=== PATIENT | female | born 1950 | race Caucasian/White ===

== ENCOUNTER 2017-08-25 15:04 | Outpatient (CLI) | payer MEDICARE, OTHER ==
[2017-08-25 16:36] LABS: Hemoglobin 13.2 g/dL (12.0-16.0); Mean Corpuscular HGB CONC 32.7 g/dL (32.0-36.0); Mean Corpuscular Hemoglobin 28.8 pg (27.0-31.0); Mean Corpuscular Volume 88.1 fl (81.0-99.0); Platelet Count 312 thou/uL (130-400); RBC Distribution Width 13.1 % (11.5-14.5); White Blood Cell (WBC) Count 12.1 thou/uL (4.8-10.8)
[2017-08-25 16:43] LABS: PTT 29.3 SEC (22.9-36.1)
[2017-08-25 16:55] LABS: Anion Gap 16 mmol/L (10-20); BUN (Urea Nitrogen) 21 mg/dL (9.8-20.1); Calc. Creatinine Clearance 0 mL/min (70-130); Calcium 9.2 mg/dL (7.8-10.44); Carbon Dioxide 23 mmol/L (23-31); Chloride 108 mmol/L (98-107); Estimated GFR-MDRD 81; Glucose 80 mg/dL (80-115); Potassium 4.8 mmol/L (3.5-5.1); Sodium 142 mmol/L (136-145)
== END 2017-08-25 15:05 | disposition home or self-care (01) ==
LOC: LABBT 15:04
PROVIDERS: ATTEND Urology
DX: Z01.818 Encounter for other preprocedural examination (principal); N21.0 Calculus in bladder
CPT/HCPCS: 80048; 85027; 85610; 85730; 93005; 93010

== ENCOUNTER 2017-08-29 05:46 | Day surgery (SDC) | payer MEDICARE, OTHER ==
[2017-08-29] MEDS ORDERED: Levofloxacin 500 mg/D5W 100 ml Premix Bag ONE (06:13)
[2017-08-29] MEDS ORDERED: Midazolam HCl 2 mg/2 ml Vial ONE (07:09)
[2017-08-29] MEDS ORDERED: Fentanyl 100 MCG/2 ML VIAL ONE (07:09)
--- NOTE | 2017-08-29 09:16 | OP ---
DATE OF PROCEDURE: 08/29/2017 PREOPERATIVE DIAGNOSIS: Bladder stone. POSTOPERATIVE DIAGNOSIS: Bladder stone. PROCEDURE PERFORMED: Cystoscopy, laser lithotripsy, bladder stone with evacuation. SURGEON: Dr. Donta Heller ANESTHETIC: General. ESTIMATED BLOOD LOSS: Minimal. FINDINGS: There is a 4 x 5 cm bladder stone that was broken up with a large caliber Holmium laser fi judit and ellicked out. There were some mild areas of chronic inflammation. There was nothing suggest lia of bladder tumor or foreign body or fistula. There were 2 ureteral orifices. OPERATIVE TECHNIQUE: After obtaining written and verbal consent from the patient after receiving IV antibiotics, she was taken to the operating suite. She was placed in the supine position on the alena tment table. PlexiPulses were placed on her lower extremities and turned on. She was given a genera l anesthetic and oral intubation. She was placed in the dorsal lithotomy position. Because of some contractures, could not get her legs spread too far apart, but certainly could get them far enough fo r rigid cystoscopy. She was sterilely prepped and draped and a 22 Palestinian sheath was then well lubric ated, passed under direct vision through the female urethra into the urinary bladder with the aid of a 30 degree lens and a video camera and monitor. The bladder was filled and emptied a number of time s, being examined with the 30 and the 70 degree lens. We then brought in a large caliber Holmium las er fiber and used this to break up the stone. We tried to disintegrate as much as we could and as it got smaller and smaller pieces would fall off of and when we got done, it looked like there was most ly pieces, we began the process of the ellicking out fragments and reinspecting and lasering and aniceto cking out and did this about 3 times until we had all the stones out. There was no evidence of bladd er injury. A Valladares catheter was not left indwelling. The bladder was drained. Instruments were rem hilda. She was taken out of the dorsal lithotomy position, awakened and extubated and taken by kun power to recovery room.
[2017-08-29] MEDS ORDERED: Lidocaine 1% PF 5 ML VIAL ONE (12:15)
[2017-08-29] MEDS ORDERED: PROPOFOL 200 MG/20 ML VIAL ONE (12:15)
== END 2017-08-29 11:05 | disposition home or self-care (01) ==
LOC: SDC 05:46
PROVIDERS: ATTEND Urology
PROC: 0TCB8ZZ Extirpation of Matter from Bladder, Via Natural or Artificial Opening Endoscopic (ICD-10-PCS; principal; 2017-08-29)
DX: N21.0 Calculus in bladder (principal); N31.9 Neuromuscular dysfunction of bladder, unspecified; I10 Essential (primary) hypertension; E78.00 Pure hypercholesterolemia, unspecified
CPT/HCPCS: 82365; 88300; J1956; J2001; J2250; J2704; J3010

== ENCOUNTER 2019-02-04 11:31 | Inpatient (IN) | payer MEDICARE, OTHER ==
[2019-02-04 12:12] LABS: #Lymphocytes 1.3 thou/uL (1.20-3.40); #Monocytes 0.4 thou/uL (0.11-0.59); #Neutrophils 9.2 thou/uL (1.40-6.50); %Basophils 0.4 % (0.0-1.0); %Eosinophils 0.4 % (0.0-10.0); %Lymphocytes 11.9 % (21.0-51.0); %Neutrophils 83.4 % (42.0-75.0); Hemoglobin 13.3 g/dL (12.0-16.0); Mean Corpuscular HGB CONC 33.3 g/dL (32.0-36.0); Mean Corpuscular Hemoglobin 29.2 pg (27.0-31.0); Mean Corpuscular Volume 87.5 fL (78.0-98.0); Mean Platelet Volume 7.9 fL (7.4-10.4); Platelet Count 351 thou/uL (130-400); RBC Distribution Width 12.9 % (11.5-14.5); Red Blood Cell (RBC) Count 4.55 mill/uL (4.20-5.40)
[2019-02-04 12:18] LABS: PTT 29.3 SEC (22.9-36.1); Prothrombin Time 13.3 SEC (12.0-14.7)
--- NOTE | 2019-02-04 12:25 | RAD ---
Exam:2 views right tibia-fibula HISTORY: Pain. Trauma. COMPARISON: None FINDINGS: There appears be external casting material versus bandage/gauze. No fracture, cortical irre gularity or periosteal reaction. There is lateral soft tissue swelling IMPRESSION: No fracture. Lateral soft tissue swelling.
[2019-02-04 12:30] LABS: ALT (SGPT) 13 U/L (8-55); AST (SGOT) 19 U/L (5-34); Albumin 4.3 g/dL (3.4-4.8); Alkaline Phosphatase 143 U/L (40-110); Anion Gap 20 mmol/L (10-20); BUN (Urea Nitrogen) 20 mg/dL (9.8-20.1); Bilirubin, Total 0.6 mg/dL (0.2-1.2); Calc. Creatinine Clearance 0 mL/min (70-130); Calcium 9.4 mg/dL (7.8-10.44); Carbon Dioxide 25 mmol/L (23-31); Chloride 100 mmol/L (98-107); Estimated GFR-MDRD 71; Globulin 3.3 g/dL (2.4-3.5); Glucose 135 mg/dL (80-115); Potassium 3.9 mmol/L (3.5-5.1); Protein, Total 7.6 g/dL (6.0-8.3); Sodium 141 mmol/L (136-145)
[2019-02-04] MEDS ORDERED: Ondansetron PF 4 MG/2 ML Vial ONE (12:42)
[2019-02-04] MEDS ORDERED: Clindamycin/D5W 900 mg/50 ml Premix Bag ONE (12:42)
[2019-02-04] MEDS ORDERED: Morphine 4 MG/ML VIAL ONE (12:42)
--- NOTE | 2019-02-04 13:23 | ULT ---
ULTRASOUND DOPPLER DUPLEX VENOUS RIGHT LOWER EXTREMITY: DATE: 02/04/2019 HISTORY: 68-year-old female with right lower extremity pain TECHNIQUE: Grayscale, color-flow, and spectral analysis, of the right common femoral, profunda femoral, greater saphenous, femoral, popliteal, and posterior tibial, veins. FINDINGS: Limited study because of patient's limited mobility. Unable to move patient to visualize popliteal ve in. No DVT identified in the rest of the veins. IMPRESSION: 1. Limited study. 2. Right popliteal vein not visualized. 3. No deep venous thrombosis identified in the rest of the veins.
[2019-02-04] MEDS ORDERED: Sodium Chloride 0.9% 100 ML ONE (13:24)
[2019-02-04] MEDS ORDERED: Piperacillin/Tazobactam 4.5 GM VIAL ONE (13:24)
[2019-02-04 15:16] LABS: Lactic Acid 2.2 mmol/L (0.5-2.2)
--- NOTE | 2019-02-04 15:27 | HP ---
CHIEF COMPLAINT: Right foot swelling and erythema. HISTORY OF PRESENT ILLNESS: The patient is a 68-year-old female, who is wheelchair bound because of her multiple sclerosis since 1999. She was in the store and she pressed on her acceleration button and the wheelchair went into the refrigerator and she hit her right foot and since this episode she started having some redness in her right leg above the foot area and some swelling of the whole right lower extremity. This was several days ago and she decided to come to the emergency room for further evaluation. She is getting admitted for right leg cellulitis for IV antibiotic treatment. She denied any fever or chills. She rated the pain at 5 and now down to just residual. 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 PAST SURGICAL HISTORY: 1. Hysterectomy. 2. Adenoidectomy. 3. Foot surgery. MEDICATIONS: Please refer to the medication list. ALLERGIES: NONE. FAMILY HISTORY: Father of pancreatic cancer at unknown age and mother was 71 when she passed, I think, she had a brain tumor. SOCIAL HISTORY: She denies any alcohol intake, cigarette smoking, or illicit drug use. REVIEW OF SYSTEMS: All 14 systems were reviewed and negative except for those symptoms which are mentioned in HPI. PHYSICAL EXAMINATION: VITAL SIGNS: Blood pressure is 126/76, pulse is 99, respiratory rate is 19, temperature is 98.7. HEENT: Head is atraumatic and normocephalic. Eyes are PERRLA. Sclerae are nonicteric. Conjunctivae pinkish. Oral mucosa is moist. NECK: Supple. LUNGS: Clear. HEART: S1, S2 normal. No S3. No S4. ABDOMEN: Soft, nontender, nondistended. Bowel sounds are present. No organomegaly. EXTREMITIES: Right lower extremity just above the ankle area and some ankle area showed erythema. The right lower extremity is swollen in general and her left leg does not show any abnormalities. NEUROLOGIC: She is alert and oriented x4. Her right upper extremity is contracted and it involves her fingers, her wrist, her elbow and her shoulder. She is basically a wheelchair bound patient. Surrogate decision maker is her , Ottoniel Zimmerman. Code status is full. PRIMARY CARE PHYSICIAN: Zay Adams MD. LABORATORY DATA: Labs showed white count of 11.0, hemoglobin of 13.3, hematocrit 39.8, platelet count is 351,000, neutrophils 83.4. Normal INR, PT, and APTT. Normal electrolytes. Normal creatinine. Normal BUN. Glucose 135. Lactic acid 2.3. Alkaline phosphatase is 143. The rest of chemistry is within normal limits. Tibia and fibula x-ray negative for fracture. Vascular ultrasound of the lower extremity negative for DVT, although right popliteal vein was not visualized and the study was somewhat limited. IMPRESSION: 1. Right lower extremity cellulitis. 2. Multiple sclerosis. PLAN: Full admission to the medical floor. Condition, fair. Activity, bedrest. Diet regular. IV Hep-Lock, vancomycin 1 g q.12 hours and pharmacy to dose, Zosyn 3.375 g every 6 hours IV piggyback. Pain management with Tylenol. DVT prophylaxis with 30 mg of Lovenox q.12 subcutaneously. Continue some of her home medications, the most crucial ones which is metoprolol succinate 100 mg daily and amlodipine 5 mg daily. Job ID: [id number]
[2019-02-04] MEDS ORDERED: Dextrose 5% in Water 1,000 ML IV PRN (18:24)
[2019-02-04] MEDS ORDERED: Dextrose 50% Abboject 50 ML SYRINGE SLOW IVP PRN (18:24)
[2019-02-04] MEDS ORDERED: HumaLOG 300 UNITS/3 ML VIAL SC PRN (18:24)
[2019-02-04] MEDS: Famotidine 20 MG TAB PO SCH (20:52)
[2019-02-04] MEDS: Acetaminophen 325 MG TAB PO PRN (20:52)
[2019-02-04 21:05] VITALS: BMI 29.5
[2019-02-04] MEDS: Piperacillin/Tazobactam 3.375 GM in Sodium Chloride 0.9% 100 ML IVPB SCH (23:14)
[2019-02-05] MEDS: Piperacillin/Tazobactam 3.375 GM in Sodium Chloride 0.9% 100 ML IVPB SCH ×4 (05:11→23:29)
[2019-02-05 05:30] LABS: #Basophils 0.1 thou/uL (0.0-0.2); #Eosinphils 0.1 thou/uL (0.0-0.7); #Lymphocytes 2.1 thou/uL (1.20-3.40); #Monocytes 0.6 thou/uL (0.11-0.59); #Neutrophils 6.3 thou/uL (1.40-6.50); %Basophils 0.6 % (0.0-1.0); %Eosinophils 1.6 % (0.0-10.0); %Lymphocytes 22.9 % (21.0-51.0); %Monocytes 6.6 % (0.0-10.0); %Neutrophils 68.3 % (42.0-75.0); Hemoglobin 10.8 g/dL (12.0-16.0); Mean Corpuscular HGB CONC 32.9 g/dL (32.0-36.0); Mean Corpuscular Hemoglobin 28.9 pg (27.0-31.0); Mean Corpuscular Volume 87.7 fL (78.0-98.0); Platelet Count 326 thou/uL (130-400); RBC Distribution Width 12.8 % (11.5-14.5); Red Blood Cell (RBC) Count 3.76 mill/uL (4.20-5.40); White Blood Cell (WBC) Count 9.2 thou/uL (4.8-10.8)
[2019-02-05 05:51] LABS: Anion Gap 12 mmol/L (10-20); BUN (Urea Nitrogen) 21 mg/dL (9.8-20.1); Calc. Creatinine Clearance 76 mL/min (70-130); Calcium 8.3 mg/dL (7.8-10.44); Carbon Dioxide 27 mmol/L (23-31); Chloride 108 mmol/L (98-107); Estimated GFR-MDRD 70; Glucose 102 mg/dL (80-115); Potassium 3.3 mmol/L (3.5-5.1); Sodium 144 mmol/L (136-145)
[2019-02-05] MEDS ORDERED: Vancomycin HCl 1 GM in Premix Bag 1 BAG IVPB SCH (06:00)
[2019-02-05] MEDS: Famotidine 20 MG TAB PO SCH ×2 (08:14→20:23)
[2019-02-05] MEDS: Enoxaparin Sodium 40 MG/0.4 ML SYRINGE SC SCH (08:14)
[2019-02-05] MEDS ORDERED: FLU VACC TS2019-20(65YR UP)/PF 180 MCG/0.5 ML SYRINGE IM ONE (09:00)
[2019-02-05] MEDS ORDERED: Amlodipine 5 MG TAB PO SCH (09:00)
[2019-02-05] MEDS ORDERED: Prevnar 13-Val Conj/PF 0.5 ML SYRINGE IM ONE (09:00)
[2019-02-05] MEDS ORDERED: Potassium Chloride 20 MEQ TAB PO SCH (14:15)
[2019-02-05] MEDS: Gabapentin 300 MG CAP PO SCH ×2 (14:56→20:23)
[2019-02-05] MEDS: Baclofen 10 MG TAB PO SCH ×2 (14:56→20:23)
[2019-02-05] MEDS ORDERED: Vancomycin HCl 1.25 GM in Sodium Chloride 0.9% 250 ML 250 ML IVPB SCH (15:00)
--- NOTE | 2019-02-05 19:43 | PRG ---
DATE OF SERVICE: 02/05/2019 SUBJECTIVE: The patient was seen at bedside, admitted with right ankle area swelling secondary to trauma to her right ankle area while she was having motor wheelchair. Currently, the patient is feeling better; however, still has mild swelling and redness, but improving. The patient denies any fever, chest pain, nausea, vomiting, or diarrhea. OBJECTIVE: VITAL SIGNS: Temperature 98.3, pulse 61, respirations 18, oxygen saturation 98%, and blood pressure 119/73. GENERAL: The patient lying in bed comfortably, not in any distress. HEENT: Conjunctivae normal. Oral mucosa moist. NECK: Supple. No JVD. No lymphadenopathy. CHEST: Normal vesicular breathing. HEART: Sounds normal. ABDOMEN: Soft, benign, nontender. No visceromegaly. EXTREMITIES: Mild edema. Redness noted in right ankle area; however, pulses intact. LABORATORY DATA: BMP unremarkable except potassium 3.3 and blood glucose 220 to 119. CBC unremarkable except hemoglobin 10.8. IMPRESSION: 1. Right leg cellulitis, improving. The patient has baseline multiple sclerosis, unable to move her extremities. We will keep right leg elevated. Discussed with the nursing staff. I added one pillow below right leg. Swelling already improving. Continue currently antibiotics, leukocytosis improved. 2. History of multiple sclerosis. Continue supportive care, change of position, and follow up outpatient with neurologist. 3. Deep venous thrombosis/gastrointestinal prophylaxis. PLAN: Discussed with the patient and nursing staff. Job ID: [id number]
[2019-02-05] MEDS: Acetaminophen 325 MG TAB PO PRN (20:24)
[2019-02-05] MEDS ORDERED: Atorvastatin Calcium 10 MG TAB PO SCH (21:00)
[2019-02-06] MEDS: Piperacillin/Tazobactam 3.375 GM in Sodium Chloride 0.9% 100 ML IVPB SCH ×2 (05:18→11:35)
[2019-02-06 05:47] LABS: #Eosinphils 0.2 thou/uL (0.0-0.7); #Lymphocytes 2.4 thou/uL (1.20-3.40); #Monocytes 0.5 thou/uL (0.11-0.59); #Neutrophils 4.5 thou/uL (1.40-6.50); %Basophils 0.6 % (0.0-1.0); %Eosinophils 3.1 % (0.0-10.0); %Lymphocytes 30.9 % (21.0-51.0); %Monocytes 6.7 % (0.0-10.0); %Neutrophils 58.6 % (42.0-75.0); Hemoglobin 10.4 g/dL (12.0-16.0); Mean Corpuscular HGB CONC 31.9 g/dL (32.0-36.0); Mean Corpuscular Hemoglobin 28.2 pg (27.0-31.0); Mean Corpuscular Volume 88.2 fL (78.0-98.0); Mean Platelet Volume 7.9 fL (7.4-10.4); Platelet Count 311 thou/uL (130-400); RBC Distribution Width 12.9 % (11.5-14.5); Red Blood Cell (RBC) Count 3.69 mill/uL (4.20-5.40); White Blood Cell (WBC) Count 7.7 thou/uL (4.8-10.8)
[2019-02-06 06:12] LABS: Anion Gap 12 mmol/L (10-20); BUN (Urea Nitrogen) 16 mg/dL (9.8-20.1); Calc. Creatinine Clearance 85 mL/min (70-130); Calcium 8.4 mg/dL (7.8-10.44); Carbon Dioxide 26 mmol/L (23-31); Chloride 110 mmol/L (98-107); Estimated GFR-MDRD 80; Glucose 111 mg/dL (80-115); Potassium 3.6 mmol/L (3.5-5.1); Sodium 144 mmol/L (136-145)
[2019-02-06 07:14] VITALS: BP 131/75; TEMP 98.1
[2019-02-06] MEDS: Famotidine 20 MG TAB PO SCH (08:19)
[2019-02-06] MEDS: Baclofen 10 MG TAB PO SCH (08:19)
[2019-02-06] MEDS: Gabapentin 300 MG CAP PO SCH (08:20)
[2019-02-06] MEDS: Enoxaparin Sodium 40 MG/0.4 ML SYRINGE SC SCH (08:21)
[2019-02-06] MEDS ORDERED: Aspirin 81 mg Enteric Coated Tablet PO SCH (09:00)
[2019-02-06] MEDS ORDERED: Amlodipine 5 MG TAB PO SCH (09:00)
[2019-02-06] MEDS ORDERED: Folic Acid 1 MG TAB PO SCH (09:00)
--- NOTE | 2019-02-07 10:00 | DIS ---
DATE OF ADMISSION: 02/04/2019 DATE OF DISCHARGE: 02/06/2019 DISCHARGE DIAGNOSES: 1. Acute right lower leg cellulitis. 2. History of multiple sclerosis. 3. History of wheelchair-bound. 4. Mild anemia, most likely anemia of chronic disease. PHYSICAL EXAMINATION: VITAL SIGNS: Blood pressure 131/75, temperature 98.1, pulse 70, respirations 16, oxygen saturation 97%. GENERAL: The patient is lying in bed comfortably, not in distress. HEENT: Conjunctivae are normal. Oral mucosa moist. NECK: Supple. No JVD. No lymphadenopathy. CHEST: Normal vesicular breathing. HEART: Heart sounds normal. ABDOMEN: Soft, benign. No tenderness. No organomegaly. EXTREMITIES: Improving redness to right lower leg area. Swelling improved. LABORATORY DATA: CBC unremarkable on 02/06/2019 except hemoglobin 10.4, white blood cells 7.7, platelet 311. INR 1.0. BMP unremarkable. Blood culture negative for 48 hours. X-ray of tibia and fibula negative for acute fracture. DVT negative for acute findings. HOSPITAL SUMMARY: The patient Hiram Allred was admitted with redness and swelling of right lower leg area. The patient is a wheelchair bound. The patient was moving with a wheelchair when she lost control on her wheelchair and had her foot stuck with ricks and the patient presented with redness and swelling. X-ray was negative for acute fractures. The patient showed redness, admitted with cellulitis, treated with antibiotics. Currently, feeling better. Cultures are negative for 48 hours. White blood cells are normal. The patient has multiple sclerosis and advised to keep her bilateral leg elevation mostly the right affected leg elevation under 2 pillows. As the patient's symptoms are improving, we discharged her on p.o. antibiotics. Advised to follow up with PCP in a week. The patient advised to continue her home medication. Plan discussed with the patient and nursing staff. Being discharged in a stable condition. Job ID: [id number]
--- NOTE | 2019-02-08 08:11 | PQF ---
RENA SPENCE KYELDAVID HOPE [id number] CLINICAL DOCUMENTATION CLARIFICATION FORM: POST DISCHARGE Addendum to original discharge summary date: ____ Late entry note date: __ DATE: 02/08/2019 ATTN: DAVID CARPIO Please exercise your independent, professional judgment in responding to the clarification form. Clinical indicators are provided on the bottom of this form for your review Please check appropriate box(s) to clarify if the following diagnosis has been ruled in or ruled out: SEPSIS [ ] Ruled in diagnosis [ ] Continue to treat [ ] Resolved [ ] Ruled out diagnosis [ ] Cannot rule out diagnosis [ ] Other diagnosis [ ] Unable to determine For continuity of documentation, please document condition throughout progress notes and discharge summary. Thank You. CLINICAL INDICATORS - SIGNS / SYMPTOMS / LABS - Sepsis- ED record, 02/04, Boy Perez DO - Temp: 98.7, Pulse: 127, RR: 24- ED record, 02/04, Grismike Perez - WBC: 11.0-Laboratory, 02/04 RISK FACTORS - Acute right lower leg cellulitis- DS, 02/06, DAVID CARPIO - Hx of wheel chair-bound- DS, 02/06, DAVID CARPIO TREATMENTS - Zosyn.IV-MAR, 02/04 (This form is maintained as a part of the permanent medical record) 2014 [employer] All Rights Reserved Emil Haq [not provided] [not provided] TAURUS
== END 2019-02-06 13:45 | disposition home or self-care (01) | DRG 603 ==
LOC: ERS 11:31 → T4-B 18:11
PROVIDERS: ADMIT Internal Medicine; ATTEND Internal Medicine
DX: L03.115 Cellulitis of right lower limb (principal); G35 Multiple sclerosis; D63.8 Anemia in other chronic diseases classified elsewhere; E66.01 Morbid (severe) obesity due to excess calories; E11.9 Type 2 diabetes mellitus without complications; I10 Essential (primary) hypertension; E78.5 Hyperlipidemia, unspecified; Z99.3 Dependence on wheelchair; Z90.710 Acquired absence of both cervix and uterus
CPT/HCPCS: 36415; 36416; 80048; 80053; 83605; 85025; 85610; 85730; 87040; 90471; 90662; 93005; 96365; 96366; 96367; 96368; 96375; G0008; J1650; J2270; J2405; J2543; J3370; J3490; J7050

== ENCOUNTER 2020-01-18 18:33 | Inpatient (IN) | payer MEDICARE, OTHER ==
[~2020-01-18 18:33] MED LIST: Iopamidol 370 76% 100 ML VIAL ONE
[2020-01-18 19:07] LABS: #Basophils 0.1 thou/uL (0.0-0.2); #Eosinphils 0.2 thou/uL (0.0-0.7); #Lymphocytes 1.6 thou/uL (1.20-3.40); #Monocytes 0.6 thou/uL (0.11-0.59); %Basophils 0.6 % (0.0-1.0); %Eosinophils 1.6 % (0.0-10.0); %Lymphocytes 17.4 % (21.0-51.0); %Monocytes 6.1 % (0.0-10.0); %Neutrophils 74.3 % (42.0-75.0); Mean Corpuscular Hemoglobin 30.4 pg (27.0-31.0); Mean Corpuscular Volume 89.3 fL (78.0-98.0); Mean Platelet Volume 8.8 fL (7.4-10.4); Platelet Count 251 thou/uL (130-400); RBC Distribution Width 12.9 % (11.5-14.5); Red Blood Cell (RBC) Count 4.28 mill/uL (4.20-5.40); White Blood Cell (WBC) Count 9.4 thou/uL (4.8-10.8)
[2020-01-18 19:14] LABS: PTT 26.2 sec (22.9-36.1)
--- NOTE | 2020-01-18 19:15 | CT ---
CT Brain WO Con: 01/18/2020 6:45 PM CLINICAL HISTORY: Level 2 stroke alert; history of multiple sclerosis and altered mental status. IMAGING TECHNIQUE: Multiple CT images were obtained of the brain without IV contrast. COMPARISON: Prior CT of the brain dated July 20, 2016 and June 08, 2013 FINDINGS: BRAIN: Evidence of acute infarct: None. Evidence of chronic ischemic change:There is mild chronic small vessel white matter ischemic change v ersus white matter disease from the patient's reported multiple sclerosis. Evidence of intracranial hemorrhage: None. Evidence of midline shift: Third ventricle and septum pellucidum are midline. Ventricles: Normal. No hydrocephalus. SKULL: Intact. VISUALIZED PARANASAL SINUSES: There is mild mucosal thickening of the sphenoid sinus. Small mucous r etention cysts is seen in the inferior aspect the left maxillary sinus MASTOID AIR CELLS: Clear. EXTRACRANIAL SOFT TISSUES: Normal. IMPRESSION: 1. No acute intracranial abnormality. 2. Findings called to Dr. Bazan at 7:05 PM on January 18, 2020.
--- NOTE | 2020-01-18 19:17 | RAD ---
Chest AP view INDICATION: History of "passing out"; altered mental status COMPARISON: Prior exam dated August 03, 2013 FINDINGS: Lungs: The lungs are clear Cardiac silhouette: Stable mild cardiomegaly Pulmonary vasculature: Normal Pleural spaces: No pleural effusion or pneumothorax is demonstrated. Upper abdomen: No abnormality seen. Osseous structures: There is scattered degenerative and osteoarthritic change present. Mild thoracic scoliosis. There is diffuse osteopenia. Additional findings: None. IMPRESSION: Stable mild cardiomegaly
[2020-01-18 19:24] LABS: ALT (SGPT) 13 U/L (8-55); AST (SGOT) 16 U/L (5-34); Albumin 3.5 g/dL (3.4-4.8); Alkaline Phosphatase 105 U/L (40-110); Anion Gap 15 mmol/L (10-20); BUN (Urea Nitrogen) 24 mg/dL (9.8-20.1); Bilirubin, Total 0.2 mg/dL (0.2-1.2); Calc. Creatinine Clearance 0 mL/min (70-130); Calcium 8.4 mg/dL (7.8-10.44); Carbon Dioxide 24 mmol/L (23-31); Chloride 106 mmol/L (98-107); Estimated GFR-MDRD 59; Globulin 2.7 g/dL (2.4-3.5); Glucose 148 mg/dL (80-115); Lipase 44 U/L (8-78); Potassium 3.8 mmol/L (3.5-5.1); Protein, Total 6.2 g/dL (6.0-8.3); Sodium 141 mmol/L (136-145)
[2020-01-18 20:38] LABS: Bilirubin Negative (Negative); Blood, Urine Negative (Negative); Clarity Clear (Clear); Glucose, Urine (Dipstick) Normal (Negative); Ketone, Urine Negative (Negative); Leukocyte Negative Leu/uL (Negative); Nitrite Negative (Negative); Protein, Urine (Dipstick) 10 mg/dL (Neg-Trace); Specific Gravity, Urine 1.026 (1.002-1.036); pH, Urine 5.5 (5.0-9.0)
--- NOTE | 2020-01-18 20:53 | CT ---
CTA Angio Chest W WO Con 01/18/2020 8:32 PM Indication: 69-year-old female with syncope and elevated d-dimer Technique: Multiple CTA images were obtained of the thorax with IV contrast. 3-D rendering: MIP abhijit nstructed images were created and reviewed. Comparison: Prior CT the abdomen with and without contrast dated August 08, 2018 Findings: Pulmonary arteries: No central or segmental pulmonary embolus is evident. Heart and Aorta: There are coronary artery and thoracic aortic calcifications. There is a small trevon cardial effusion Mediastinum:Normal appearing. No enlarged lymph nodes. Lungs:The lungs are clear. Pleural space: Clear. Upper Abdomen: Right renal cyst. No additional abnormality Osseous Structures: There is diffuse osteopenia. There is scattered degenerative and osteoarthritic change present. There are bony hemangioma within the anterior T10 and T9 vertebral levels. Soft tissues:No abnormality. Other findings:None. Impression: No central or segmental pulmonary embolus.
--- NOTE | 2020-01-18 20:58 | CT ---
CT OF THE ABDOMEN AND PELVIS WITH IV CONTRAST INDICATION: Nausea vomiting and syncope COMPARISON: CT the abdomen with and without contrast dated August 08, 2018. FINDINGS: ABDOMEN: Lung bases: Clear Liver: No focal lesion. Gallbladder: Normal appearing. Pancreas: Normal. Adrenal glands: Normal. Spleen: Normal. Kidneys and ureters: Stable, peripherally calcified 7 cm superior pole right renal cyst. Left kidney appears within normal limits. Vasculature: There are moderate vascular calcifications seen involving the visualized vasculature. Lymph nodes:No lymphadenopathy. Free fluid in abdomen:No free fluid is evident. PELVIS: Small and large bowel: There are a few scattered colonic diverticula without evidence of active diver ticulitis. The small bowel is of normal caliber. Appendix:Not definitely seen Bladder: Partially decompressed Rectal and perirectal soft tissues:Mild wall thickening involving the mid to distal rectum is nonspec ific. Reproductive structures: Uterus appears to be surgically absent. Adnexa are not well seen Free fluid in pelvis: No free fluid is evident. Lymphadenopathy pelvis: No lymphadenopathy is evident. Osseous structures: No acute osseous abnormality. No destructive osteolytic or osteoblastic lesion i s identified. There is diffuse osteopenia. There is scattered degenerative and osteoarthritic change present. Soft tissues:There is some soft tissue stranding overlying the right hip which may reflect contusion versus scar. IMPRESSION: 1. Soft tissue reticulation of the right hip may reflect contusion versus scar. Recommend correlation clinically examination. 2. Mild wall thickening involving the mid to distal rectum is nonspecific. A mild proctitis cannot be entirely excluded. Recommend correlation with the clinical exam. 3. Peripherally calcified right renal cyst appears similar to the prior exam.
[2020-01-18] MEDS ORDERED: Piperacillin/Tazobactam 4.5 GM VIAL ONE (21:35)
[2020-01-19] MEDS ORDERED: Calcium Carbonate 500 MG ChewTAB PO PRN (00:01)
[2020-01-19] MEDS ORDERED: Acetaminophen 325 MG TAB PO PRN (00:01)
[2020-01-19] MEDS ORDERED: Acetaminophen 650 MG Suppository PR PRN (00:01)
--- NOTE | 2020-01-19 00:09 | PDOC.HHP ---
Hospitalist HPI - History of Present Illness syncope History of Present Illness: Case of an 69-year-old female with a pmhx of MS, hld and htn who comes to hospital due to syncope. Today patient had an episode of altered mental status and syncope after that she threw up and defecated on herself, this lasted a few seconds before she started to slowing arouse. of note patient was becoming hypotensive on way to hospital for which ems treated patient with ivfs and improved. patient denies any chest pain palpitation sob or diaphoresis. as per ems 40minutes after arrival patient was still altered, unpon arrival to the ED mentation had improved and was alert and ox3 Hospitalist ROS - Review of Systems All other systems reviewed; all pertinent +/- noted in HPI/Subj Hospitalist History - Past Surgical History Past Surgical History: reports: Appendectomy, Hysterectomy, Tonsillectomy - Family History Family History: reports: no pertinent history - Social History Smoking Status: Never smoker Alcohol: reports: None Drugs: reports: none - Exam General Appearance: NAD, awake alert Eye: PERRL, anicteric sclera ENT: normocephalic atraumatic, no oropharyngeal lesions Neck: supple, symmetric, no JVD, no thyromegaly Heart: RRR, no murmur, no gallops, no rubs Respiratory: CTAB, no wheezes, no rales, no ronchi Gastrointestinal: soft, non-tender, non-distended Extremities: no cyanosis, no clubbing, 1+ LE edema Skin: normal turgor, no lesions, no rashes Neurological: cranial nerve grossly intact Neurological - other findings: unable to move lower ext secondary to ms Musculoskeletal: generalized weakness, diffuse muscle atrophy Psychiatric: normal affect, normal behavior, A&O x 3 Hospitalist Results - Labs Result Diagrams: 01/18/20 18:51 01/18/20 18:51 Lab results: WBC 9.4 thou/uL (4.8-10.8) 01/18/20 18:51 Hgb 13.0 g/dL (12.0-16.0) 01/18/20 18:51 Hct 38.2 % (36.0-47.0) 01/18/20 18:51 MCV 89.3 fL (78.0-98.0) 01/18/20 18:51 Plt Count 251 thou/uL (130-400) 01/18/20 18:51 Neutrophils % 74.3 % (42.0-75.0) 01/18/20 18:51 Sodium 141 mmol/L (136-145) 01/18/20 18:51 Potassium 3.8 mmol/L (3.5-5.1) 01/18/20 18:51 Chloride 106 mmol/L (98-107) 01/18/20 18:51 Carbon Dioxide 24 mmol/L (23-31) 01/18/20 18:51 BUN 24 mg/dL (9.8-20.1) H 01/18/20 18:51 Creatinine 0.95 mg/dL (0.6-1.1) 01/18/20 18:51 Glucose 148 mg/dL (80-115) H 01/18/20 18:51 Lactic Acid 1.9 mmol/L (0.5-2.2) 01/18/20 18:51 Calcium 8.4 mg/dL (7.8-10.44) 01/18/20 18:51 Total Bilirubin 0.2 mg/dL (0.2-1.2) 01/18/20 18:51 AST 16 U/L (5-34) 01/18/20 18:51 ALT 13 U/L (8-55) 01/18/20 18:51 Alkaline Phosphatase 105 U/L (40-110) 01/18/20 18:51 Troponin I 0.013 ng/mL (< 0.028) 01/18/20 18:51 B-Natriuretic Peptide 46.4 pg/mL (0-100) 01/18/20 18:51 Serum Total Protein 6.2 g/dL (6.0-8.3) 01/18/20 18:51 Albumin 3.5 g/dL (3.4-4.8) 01/18/20 18:51 Lipase 44 U/L (8-78) 01/18/20 18:51 Urine Ketones Negative mg/dL (Negative) 01/18/20 20:15 Urine Blood Negative (Negative) 01/18/20 20:15 Urine Nitrite Negative (Negative) 01/18/20 20:15 Ur Leukocyte Esterase Negative Nakita/uL (Negative) 01/18/20 20:15 Hospitalist H&P A/P - Problem (1) Syncope Code(s): R55 - SYNCOPE AND COLLAPSE Status: Acute (2) Altered mental state Code(s): R41.82 - ALTERED MENTAL STATUS, UNSPECIFIED Status: Acute (3) HLD (hyperlipidemia) Code(s): E78.5 - HYPERLIPIDEMIA, UNSPECIFIED Status: Acute (4) HTN (hypertension) Code(s): I10 - ESSENTIAL (PRIMARY) HYPERTENSION Status: Acute (5) Multiple sclerosis Code(s): G35 - MULTIPLE SCLEROSIS Status: Acute - Plan Plan: Case of an 69y/o female wit the stated pmhx who presents with an episode of syncope syncope - no st ischemic changes or arrythmia on ekg - monitor w telemetry - 2d echo - pro bnp normal - normal hg - head ct negative - negative cta - normal blood sugar altered mental state - unclear etiology Ddx include MS exacerbation, seizures, pt does referes a similar episode in the past, hypotension secondary to over medication, arrythmia, over medication of anxiety medication, cva - f/u cmp, tsh, ammonia - neurologist consulted - r/o infection cta clean u/a clean - will get mri htn - due to hypotension, will hold current medication hld -continue statin
[2020-01-19 01:38] LABS: Troponin I Less than 0.010 ng/mL (< 0.028)
[2020-01-19 03:13] VITALS: BMI 27.0
[2020-01-19 03:24] LABS: Band 1 % (5-11); Hemoglobin 12.1 g/dL (12.0-16.0); Lymphocytes 20 % (21-51); MDiff Complete? YES; Mean Corpuscular Hemoglobin 29.6 pg (27.0-31.0); Mean Corpuscular Volume 89.9 fL (78.0-98.0); Mean Platelet Volume 8.8 fL (7.4-10.4); Monocytes 3 % (0-10); Neutrophil 76 % (42-75); Platelet Count 216 thou/uL (130-400); Platelet Morphology Comment Appears Adequate; RBC Distribution Width 12.9 % (11.5-14.5); Red Blood Cell (RBC) Count 4.08 mill/uL (4.20-5.40)
[2020-01-19 03:36] LABS: ALT (SGPT) 14 U/L (8-55); AST (SGOT) 18 U/L (5-34); Albumin 3.3 g/dL (3.4-4.8); Alkaline Phosphatase 94 U/L (40-110); Anion Gap 14 mmol/L (10-20); BUN (Urea Nitrogen) 22 mg/dL (9.8-20.1); Bilirubin, Total 0.2 mg/dL (0.2-1.2); Calc. Creatinine Clearance 61 mL/min (70-130); Calcium 8.7 mg/dL (7.8-10.44); Carbon Dioxide 25 mmol/L (23-31); Cardiac Risk 3.2 (Less than 4.5); Chloride 110 mmol/L (98-107); Cholesterol 141 mg/dl (< 200 Desired); Estimated GFR-MDRD 61; Globulin 2.3 g/dL (2.4-3.5); Glucose 169 mg/dL (80-115); HDL Cholesterol 44 mg/dL (>60 Neg Risk); LDL Cholesterol, Calculated 82 mg/dL; Potassium 3.7 mmol/L (3.5-5.1); Protein, Total 5.6 g/dL (6.0-8.3); Sodium 145 mmol/L (136-145); Triglycerides 75 mg/dL (Less than 150)
[2020-01-19 03:40] LABS: Troponin I Less than 0.010 ng/mL (< 0.028)
[2020-01-19] MEDS: Sodium Chloride 0.9% 1,000 ML IV SCH ×3 (04:13→20:25)
[2020-01-19] MEDS: Enoxaparin Sodium 40 MG/0.4 ML SYRINGE SC SCH (09:20)
--- NOTE | 2020-01-19 14:23 | CON ---
NEUROLOGY CONSULTATION DATE OF CONSULTATION: 01/19/2020 REASON FOR CONSULTATION: Syncope. HISTORY OF PRESENT ILLNESS: Ms. Daron Zimmerman is a 69-year-old female with medical history significant for multiple sclerosis, hyperlipidemia, hypertension, followed by Dr. Gomez in the [facility], presented to the hospital due to an episode of passing out. Per patient, yesterday she had an episode of altered mental status during which she passed out and defecated on herself. The episode lasted for few minutes and then she woke up. The EMS was called and at the time of initial presentation, she was found to be hypotensive and given intravenous fluid, which improved her condition. The patient denies any focal weakness, focal paresthesias, headache, chest pain, abdominal pain, recent illness, recent exposure with COVID, vertigo, loss of vision, blurred vision or double vision associated with the episode. She denies any history of prior episode. REVIEW OF SYSTEMS: All systems reviewed and were negative except the pertinent positives and negatives mentioned in the HPI. PAST MEDICAL HISTORY: Hypertension, hyperlipidemia, multiple sclerosis. PAST SURGICAL HISTORY: Appendectomy, hysterectomy, tonsillectomy. FAMILY HISTORY: No pertinent family history. SOCIAL HISTORY: The patient denies smoking, alcohol, illegal drug use. ALLERGIES: NKDA PHYSICAL EXAMINATION: 122/67 75 17 General Appearance: NAD, awake alert Eye: PERRL, anicteric sclera ENT: normocephalic atraumatic, no oropharyngeal lesions Neck: supple, symmetric, no JVD, no thyromegaly Heart: RRR, no murmur, no gallops, no rubs Respiratory: CTAB, no wheezes, no rales, no ronchi Gastrointestinal: soft, non-tender, non-distended Extremities: no cyanosis, no clubbing, 1+ LE edema Skin: normal turgor, no lesions, no rashes Neurological: : Mental status, the patient is alert and oriented to person, place, and time. Speech is clear. Muscle bulk is normal. Tone is decreased in the lower extremity secondary to MS, diffuse muscle atrophy and generalized weakness, lower extremities greater than upper extremities. Cranial nerves II through XII intact. Cerebellar, finger-nose testing intact. Gait deferred due to patient's safety reasons. DATA REVIEWED: I reviewed the labs which were significant for hyperglycemia of 148. CT scan of the brain did not reveal acute intracranial pathology. WBC 9.4 thou/uL (4.8-10.8) 01/18/20 18:51 Hgb 13.0 g/dL (12.0-16.0) 01/18/20 18:51 Hct 38.2 % (36.0-47.0) 01/18/20 18:51 MCV 89.3 fL (78.0-98.0) 01/18/20 18:51 Plt Count 251 thou/uL (130-400) 01/18/20 18:51 Neutrophils % 74.3 % (42.0-75.0) 01/18/20 18:51 Sodium 141 mmol/L (136-145) 01/18/20 18:51 Potassium 3.8 mmol/L (3.5-5.1) 01/18/20 18:51 Chloride 106 mmol/L (98-107) 01/18/20 18:51 Carbon Dioxide 24 mmol/L (23-31) 01/18/20 18:51 BUN 24 mg/dL (9.8-20.1) H 01/18/20 18:51 Creatinine 0.95 mg/dL (0.6-1.1) 01/18/20 18:51 Glucose 148 mg/dL (80-115) H 01/18/20 18:51 Lactic Acid 1.9 mmol/L (0.5-2.2) 01/18/20 18:51 Calcium 8.4 mg/dL (7.8-10.44) 01/18/20 18:51 Total Bilirubin 0.2 mg/dL (0.2-1.2) 01/18/20 18:51 AST 16 U/L (5-34) 01/18/20 18:51 ALT 13 U/L (8-55) 01/18/20 18:51 Alkaline Phosphatase 105 U/L (40-110) 01/18/20 18:51 Troponin I 0.013 ng/mL (< 0.028) 01/18/20 18:51 B-Natriuretic Peptide 46.4 pg/mL (0-100) 01/18/20 18:51 Serum Total Protein 6.2 g/dL (6.0-8.3) 01/18/20 18:51 Albumin 3.5 g/dL (3.4-4.8) 01/18/20 18:51 Lipase 44 U/L (8-78) 01/18/20 18:51 Urine Ketones Negative mg/dL (Negative) 01/18/20 20:15 Urine Blood Negative (Negative) 01/18/20 20:15 Urine Nitrite Negative (Negative) 01/18/20 20:15 Ur Leukocyte Esterase Negative Nakita/uL (Negative) 01/18/20 20:15 ASSESSMENT AND PLAN: (1) Syncope Code(s): R55 - SYNCOPE AND COLLAPSE Status: Acute (2) Altered mental state Code(s): R41.82 - ALTERED MENTAL STATUS, UNSPECIFIED Status: Acute (3) HLD (hyperlipidemia) Code(s): E78.5 - HYPERLIPIDEMIA, UNSPECIFIED Status: Acute (4) HTN (hypertension) Code(s): I10 - ESSENTIAL (PRIMARY) HYPERTENSION Status: Acute (5) Multiple sclerosis Code(s): G35 - MULTIPLE SCLEROSIS Status: Acute MsMohsen Zimmerman is a 69-year-old female with a medical history significant for multiple sclerosis, presented with an episode of syncope; however, seizure could not be completely ruled out, consider MRI of the brain with and without contrast to follow up on multiple sclerosis exacerbation. EEG to rule out underlying seizure activity. 2D echocardiogram and telemetry as part of syncope workup. Neuro checks every 4 hours. Continue home medications. Continue medical management per primary team, PT/OT/Speech. We will continue to follow. Thank you for the consult. Job ID: [id number] TAURUS
--- NOTE | 2020-01-19 14:43 | PDOC.EEG ---
Neurology EEG Report - Report Report: This EEG was performed using 24 channel [employer] video digital EEG machine with 24 disc electrodes. This was an extended 2-hour 4 minutes of inpatient video EEG recording. Digital analysis of the EEG was done for Miguel Angel and seizure detection which revealed no abnormalities. Background: The posterior background rhythm is 8.5-9 Hz the background rhythm attenuates with eye opening and enhances with eye closure. Photic stimulation: Bioccipital symmetric driving response is observed. Hyperventilation: Not performed Sleep: Drowsiness is observed EEG diagnosis: Normal awake and drowsy EEG.
[2020-01-19] MEDS ORDERED: Magnevist 469MG/ML 20 ML VIAL ONE (15:33)
--- NOTE | 2020-01-19 16:35 | MRI ---
MRI Brain W WO Con: 01/19/2020 1:35 PM CLINICAL HISTORY: History of multiple sclerosis; concern for acute exacerbation. TECHNIQUE: Multiplanar, multisequence images were obtained of the brain with and without IV contrast. 20 cc of MultiHance was utilized for the exam. COMPARISON: CT the brain without contrast dated January 18, 2020 FINDINGS: Extra axial spaces: Normal in size and morphology for the patient's age. Hemorrhage: None. Ventricular system: Normal in size and morphology for the patient's age. Basal cisterns: Normal. Cerebral parenchyma: There are foci of T2 hyperintensity seen within the periventricular white matter . The morphological appearance that is seen with inflammatory entities such as multiple sclerosis. No definite active demyelination is evident. No definite foci of abnormal enhancement is noted. There is a single punctate region of increased signal intensity on the diffusion-weighted images within the right splenium of the corpus callosum without definite confirmation of restricted diffusion likel y related to T2 shine through effect. No acute infarct is noted.. Midline shift: None. Cerebellum: Normal. Brainstem: There are areas of mild T2 hyperintensity within the paramedian lance which may be related to patient's multiple sclerosis or chronic small vessel white matter ischemic change. OTHER: Calvarium: Normal. Vascular system: Normal. Visualized Paranasal sinuses: Mild mucosal thickening is seen within the sphenoid sinus, left maxilla ry sinus and ethmoid air cells.. Visualized Orbits: The napaimute lenses have been replaced. Visualized upper cervical spine: Normal. Sella and skull base: Normal. IMPRESSION: 1. No definite acute intracranial abnormality demonstrated. 2. Foci of T2 hyperintensity within the periventricular white matter of both cerebral hemispheres con sistent with patient's history of multiple sclerosis. No active demyelination is evident. 3. Mild paranasal sinus disease.
[2020-01-19] MEDS: Atorvastatin Calcium 10 MG TAB PO SCH (20:25)
[2020-01-19] MEDS ORDERED: FLU VACC QS2020-21(65YR UP)/PF 240 MCG/0.7 ML SYRINGE IM ONE (21:00)
[2020-01-20] MEDS: Sodium Chloride 0.9% 1,000 ML IV SCH (09:11)
[2020-01-20] MEDS: Enoxaparin Sodium 40 MG/0.4 ML SYRINGE SC SCH (09:11)
--- NOTE | 2020-01-20 09:59 | PDOC.EVN ---
Event Note - Event Note Event Note: I was contacted by Dr. Jeison Mobley from [facility]. Patient stay reportedly meets inpatient criteria. I will change patient status to inpatient.
[2020-01-20] MEDS ORDERED: Bisacodyl 5 MG TAB PO PRN (10:34)
--- NOTE | 2020-01-20 12:15 | PDOC.NEUPN ---
- Subjective Encounter Date: 01/20/20 Subjective: Patient denies any new complaint since the last 24 hours - Objective Vital Signs & Weight: Vital Signs (12 hours) Temp Pulse Resp BP Pulse Ox 01/20/20 11:40 98.4 F 73 18 187/86 H 96 01/20/20 07:34 98.2 F 72 16 160/76 H 97 01/20/20 04:00 97.9 F 63 16 166/79 H 96 Weight Weight 143 lb I&O: 01/19/20 01/20/20 01/21/20 07:59 06:59 06:59 Intake Total Output Total Balance Result Diagrams: 01/19/20 03:01 01/19/20 03:01 Radiology Reviewed by me: Yes EKG Reviewed by me: Yes ROS - Review of Systems Constitutional: denies: fever, chills, sweats, weakness, malaise, other ENT: denies: ear pain, ear discharge, nose pain, nose discharge, nose congestion, mouth pain, mouth swelling, throat pain, throat swelling, other Respiratory: denies: cough, dry, shortness of breath, hemoptysis, SOB with exc ertion, pleuritic pain, sputum, wheezing, other All Systems: All other systems reviewed; all pertinent +/- noted in HPI/Subj - Medication Medications: Active Medications Generic Name Dose Route Start Last Admin Trade Name Freq PRN Reason Stop Dose Admin Atorvastatin Calcium 10 mg 01/19/20 21:00 01/19/20 20:25 Atorvastatin Calcium 10 Mg Tab PO 10 mg HS ANA MARIA Administration Enoxaparin Sodium 40 mg 01/19/20 09:00 01/20/20 09:11 Enoxaparin Sodium 40 Mg/0.4 Ml Syringe SC 40 mg 0900 ANA MARIA Administration Sodium Chloride 1,000 mls @ 70 mls/hr 01/19/20 00:15 01/20/20 09:11 Normal Saline 0.9% IV 1,000 mls .[id number] ANA MARIA Administration - Exam General Appearance: awake alert Eye: PERRL ENT: normocephalic atraumatic Neck: supple Respiratory: CTAB Cardiovascular: RRR Gastrointestinal: soft Extremities: no cyanosis Skin: normal turgor Neurological: CN's grossly intact, no focal deficits, no new deficit Musculoskeletal: normal tone, normal strength, no muscle wasting PSYCH: normal affect, normal behavior, A&O x 3, oriented to person, oriented to place, oriented to time Results - Labs Result Diagrams: 01/19/20 03:01 01/19/20 03:01 Lab results: WBC 12.0 thou/uL (4.8-10.8) H 01/19/20 03:01 Hgb 12.1 g/dL (12.0-16.0) 01/19/20 03:01 Hct 36.6 % (36.0-47.0) 01/19/20 03:01 MCV 89.9 fL (78.0-98.0) 01/19/20 03:01 Plt Count 216 thou/uL (130-400) 01/19/20 03:01 Neutrophils % 74.3 % (42.0-75.0) 01/18/20 18:51 Band Neuts % (Manual) 1 % (5-11) L 01/19/20 03:01 Sodium 145 mmol/L (136-145) 01/19/20 03:01 Potassium 3.7 mmol/L (3.5-5.1) 01/19/20 03:01 Chloride 110 mmol/L (98-107) H 01/19/20 03:01 Carbon Dioxide 25 mmol/L (23-31) 01/19/20 03:01 BUN 22 mg/dL (9.8-20.1) H 01/19/20 03:01 Creatinine 0.92 mg/dL (0.6-1.1) 01/19/20 03:01 Glucose 169 mg/dL (80-115) H 01/19/20 03:01 Lactic Acid 1.9 mmol/L (0.5-2.2) 01/18/20 18:51 Calcium 8.7 mg/dL (7.8-10.44) 01/19/20 03:01 Total Bilirubin 0.2 mg/dL (0.2-1.2) 01/19/20 03:01 AST 18 U/L (5-34) 01/19/20 03:01 ALT 14 U/L (8-55) 01/19/20 03:01 Alkaline Phosphatase 94 U/L (40-110) 01/19/20 03:01 Ammonia 24 umol/L (18-72) 01/19/20 03:01 Troponin I Less than 0.010 ng/mL (< 0.028) 01/19/20 03:01 B-Natriuretic Peptide 46.4 pg/mL (0-100) 01/18/20 18:51 Serum Total Protein 5.6 g/dL (6.0-8.3) L 01/19/20 03:01 Albumin 3.3 g/dL (3.4-4.8) L 01/19/20 03:01 Lipase 44 U/L (8-78) 01/18/20 18:51 Urine Ketones Negative mg/dL (Negative) 01/18/20 20:15 Urine Blood Negative (Negative) 01/18/20 20:15 Urine Nitrite Negative (Negative) 01/18/20 20:15 Ur Leukocyte Esterase Negative Nakita/uL (Negative) 01/18/20 20:15 - Radiology Interpretation MRI - head Status: image reviewed by me, report reviewed by me Additional Comment: MRI the brain did not reveal any acute intracranial pathology. No active demyelinating multiple sclerosis lesions seen on the MRI. PN A/P (1) Altered mental state Code(s): R41.82 - ALTERED MENTAL STATUS, UNSPECIFIED Status: Acute (2) HLD (hyperlipidemia) Code(s): E78.5 - HYPERLIPIDEMIA, UNSPECIFIED Status: Acute (3) HTN (hypertension) Code(s): I10 - ESSENTIAL (PRIMARY) HYPERTENSION Status: Acute (4) Multiple sclerosis Code(s): G35 - MULTIPLE SCLEROSIS Status: Acute (5) Syncope Code(s): R55 - SYNCOPE AND COLLAPSE Status: Acute - Plan Daily Plan: PT/OT, speech therapy, out of bed/ambulate Ms. Zimmerman is a 69-year-old female with past medical history significant for multiple sclerosis scented for altered mental status and a passing out spell. Differential diagnoses include TIA versus seizure versus syncope. MRI of the brain reviewed which did not reveal any acute intracranial pathology, stroke or active demyelinating lesions. EEG reviewed which was negative for seizure activity 2D echo showed ejection fraction 55 to 60%. No thrombus or PFO. Telemetry Continue syncope work-up cardiology. Neurochecks every 4 hours. Continue home medications. PT/OT/speech Continue medical management per primary team. Plan discussed in detail with the patient.
[2020-01-20] MEDS ORDERED: Amlodipine 5 MG TAB PO SCH (15:45)
--- NOTE | 2020-01-20 16:10 | PDOC.HOSPP ---
- Subjective Encounter Date: 01/20/20 Encounter Time: 08:30 Subjective: Patient seen for follow-up regarding syncope. She denies any chest pain or shortness of breath. - Objective Vital Signs & Weight: Vital Signs (12 hours) Temp Pulse Resp BP Pulse Ox 01/20/20 13:49 163/74 H 01/20/20 13:23 175/67 H 01/20/20 11:40 98.4 F 73 18 187/86 H 96 01/20/20 07:34 98.2 F 72 16 160/76 H 97 Weight Weight 143 lb I&O: 01/19/20 01/20/20 01/21/20 07:59 06:59 06:59 Intake Total Output Total Balance Result Diagrams: 01/19/20 03:01 01/19/20 03:01 Additional Labs: I reviewed patient's labs and MAR EKG Reviewed by me: Yes (Telemetry: NSR) Hospitalist ROS - Review of Systems Cardiovascular: denies: chest pain, palpitations, orthopnea, paroxysmal noc. dyspnea, edema, light headedness Gastrointestinal: denies: nausea, vomiting, abdominal pain, diarrhea, constipation, melena, hematochezia - Medication Medications: Active Medications Generic Name Dose Route Start Last Admin Trade Name Freq PRN Reason Stop Dose Admin Atorvastatin Calcium 10 mg 01/19/20 21:00 01/19/20 20:25 Atorvastatin Calcium 10 Mg Tab PO 10 mg HS ANA MARIA Administration Bisacodyl 10 mg 01/20/20 10:34 01/20/20 12:52 Bisacodyl 5 Mg Tab PO 10 mg DAILYPRN PRN Administration Constipation Enoxaparin Sodium 40 mg 01/19/20 09:00 01/20/20 09:11 Enoxaparin Sodium 40 Mg/0.4 Ml Syringe SC 40 mg 0900 ANA MARIA Administration Sodium Chloride 1,000 mls @ 70 mls/hr 01/19/20 00:15 01/20/20 09:11 Normal Saline 0.9% IV 1,000 mls .[id number] ANA MARIA Administration - Exam General Appearance: awake alert Eye: anicteric sclera ENT: moist mucosa Neck: supple Heart: RRR Respiratory: CTAB Gastrointestinal: soft Extremities - other findings: Contractures Skin: no rashes Psychiatric: normal affect, normal behavior Hosp A/P - Plan -Assessment (1) Syncope Code(s): R55 - SYNCOPE AND COLLAPSE Status: Acute (2) HLD (hyperlipidemia) Code(s): E78.5 - HYPERLIPIDEMIA, UNSPECIFIED Status: Chronic (3) HTN (hypertension) Code(s): I10 - ESSENTIAL (PRIMARY) HYPERTENSION Status: Chronic (4) Multiple sclerosis Code(s): G35 - MULTIPLE SCLEROSIS Status: Chronic (5) acute metabolic encephalopathy Status: Resolved - Plan Neuro work-up negative so far. Continue to monitor on telemetry. Consult cardiology for opinion and help with management. Acute metabolic encephalopathy has resolved. Blood pressures have been high, resume antihypertensives. Continue statin.
[2020-01-20] MEDS ORDERED: Enalaprilat Dihydrate 1.25 MG/ML VIAL SLOW IVP PRN (18:52)
[2020-01-20] MEDS ORDERED: Dextrose 5% in Water 1,000 ML IV PRN (18:56)
[2020-01-20] MEDS ORDERED: Dextrose 50% Abboject 50 ML SYRINGE SLOW IVP PRN (18:56)
[2020-01-20] MEDS ORDERED: HumaLOG 300 UNITS/3 ML VIAL SC PRN (18:56)
[2020-01-20] MEDS: Citalopram 20 MG TAB PO SCH (20:57)
[2020-01-20] MEDS: Atorvastatin Calcium 10 MG TAB PO SCH (20:57)
[2020-01-21 00:12] LABS: SARS-CoV-2 MS2 Positive; SARS-CoV-2 N Gene Negative; SARS-CoV-2 S Gene Negative; SARS-CoV-2 by NAA Not Detected (Not Detected); SARS-CoV-2 orf1ab Negative
[2020-01-21 04:28] LABS: #Basophils 0.1 thou/uL (0.0-0.2); #Eosinphils 0.2 thou/uL (0.0-0.7); #Lymphocytes 2.1 thou/uL (1.20-3.40); #Monocytes 0.6 thou/uL (0.11-0.59); #Neutrophils 7.2 thou/uL (1.40-6.50); %Basophils 0.7 % (0.0-1.0); %Eosinophils 1.7 % (0.0-10.0); %Lymphocytes 21.2 % (21.0-51.0); %Monocytes 5.5 % (0.0-10.0); Hemoglobin 13.1 g/dL (12.0-16.0); Mean Corpuscular HGB CONC 33.5 g/dL (32.0-36.0); Mean Corpuscular Hemoglobin 29.7 pg (27.0-31.0); Mean Corpuscular Volume 88.5 fL (78.0-98.0); Mean Platelet Volume 8.7 fL (7.4-10.4); Platelet Count 238 thou/uL (130-400); RBC Distribution Width 12.7 % (11.5-14.5); Red Blood Cell (RBC) Count 4.42 mill/uL (4.20-5.40); White Blood Cell (WBC) Count 10.1 thou/uL (4.8-10.8)
[2020-01-21 04:45] LABS: Hemoglobin A1c 5.6 % (4.0-6.0)
[2020-01-21 04:56] LABS: Anion Gap 14 mmol/L (10-20); BUN (Urea Nitrogen) 9 mg/dL (9.8-20.1); Calc. Creatinine Clearance 87 mL/min (70-130); Calcium 8.9 mg/dL (7.8-10.44); Carbon Dioxide 26 mmol/L (23-31); Chloride 104 mmol/L (98-107); Estimated GFR-MDRD Greater than 90; Glucose 90 mg/dL (80-115); Potassium 3.6 mmol/L (3.5-5.1); Sodium 140 mmol/L (136-145)
[2020-01-21] MEDS ORDERED: Hydrochlorothiazide 25 MG TAB PO SCH (09:00)
[2020-01-21] MEDS ORDERED: Amlodipine 5 MG TAB PO SCH (09:00)
[2020-01-21] MEDS: Aspirin 81 mg Enteric Coated Tablet PO SCH (09:37)
[2020-01-21] MEDS: Baclofen 10 MG TAB PO SCH (09:37)
[2020-01-21] MEDS: Cholecalciferol 1,000 UNITS (25 MCG) TAB PO SCH (09:38)
[2020-01-21] MEDS: Gabapentin 300 MG CAP PO SCH (09:39)
[2020-01-21] MEDS: Cyanocobalamin (Vitamin B-12) 1,000 MCG TAB PO SCH (09:39)
[2020-01-21] MEDS: Fish Oil 1,000 MG CAP PO SCH (09:39)
[2020-01-21] MEDS: Enoxaparin Sodium 40 MG/0.4 ML SYRINGE SC SCH (09:39)
--- NOTE | 2020-01-21 16:17 | CON ---
DATE OF CONSULTATION: 01/21/2020 REASON FOR CONSULTATION: Episode of unresponsiveness. HISTORY OF PRESENT ILLNESS: Ms. Zimmerman is a very pleasant 69-year-old woman with long history of multiple sclerosis. She had an episode of unresponsiveness prompting admission on 01/18/2020. The patient had an episode of altered mental status, after which she passed out and defecated on herself. She lasted a few minutes and woke up. EMS was called and she was found to be hypotensive. She was given intravenous fluid and that improved her condition. Since she has been here, she has undergone neurologic evaluation and does not thought that is a primary neurologic event. REVIEW OF SYSTEMS: CONSTITUTIONAL: No significant weight gain or loss. VISION: No changes. HEARING: No changes. PULMONARY: No cough or wheezing. GASTROINTESTINAL: No nausea, vomiting, or diarrhea. PAST MEDICAL HISTORY: She has a long history of multiple sclerosis. She is mostly in bed with a power wheelchair. She is able to be somewhat mobile. She said to get from the chair to the bed or from the bed to the chair her essentially lift her and puts her in the chair. She is unable to walk. Past history for hypertension, hyperlipidemia. PAST SURGICAL HISTORY: Appendectomy and hysterectomy. SOCIAL HISTORY: No alcohol or tobacco. PHYSICAL EXAMINATION: GENERAL: This is a very pleasant 69-year-old woman. VITAL SIGNS: Her blood pressure earlier 166/79, now 142/69; pulse 67 and regular. EYES: Sclerae are nonicteric. MOUTH: Mucous membranes are moist. NECK: Supple. No lymphadenopathy. LUNGS: Clear. No wheezing, rales, or rhonchi. CARDIAC: Normal S1 and normal S2. There is no murmur, rub, or gallop. ABDOMEN: Soft, nontender. EXTREMITIES: Warm, dry. No clubbing. No cyanosis. She has no edema. PERTINENT LABORATORY DATA: Her creatinine is 0.64. Hemoglobin is 13.1. INR is 1. IMAGING STUDIES: EKG, sinus rhythm, some nonspecific T-waves in V2 only, otherwise normal. Echocardiogram is normal. EEG was normal. No specific findings were found on the neurologic evaluation to indicate this is a neurologic event. ASSESSMENT: 1. Episode of unresponsiveness and syncope, probably orthostatic hypotension. 2. History of hypertension. The patient states she is taking metoprolol daily. She is not sure if she is taking any other blood pressure medicines, she thinks she has not. PLAN: 1. I called the couple of times to see if he can confirm what blood pressure medicines she is on. I was unable to contact him. 2. We will ask Dr. Adams's office to see if there is any other prescribed antihypertensive. She said she thinks she was on amlodipine, but she does not think she is on it now. 3. I would reduce metoprolol since she had this episode on metoprolol 100 mg a day. 4. Stop amlodipine, would rather have her blood pressure high than low to try to avoid further episodes. There is no evidence of any arrhythmias at this point. Job ID: [id number]
--- NOTE | 2020-01-21 18:19 | PDOC.HOSPP ---
- Subjective Encounter Date: 01/21/20 Encounter Time: 10:30 Subjective: Patient seen for follow-up syncope, she denies any new complaints. - Objective Vital Signs & Weight: Vital Signs (12 hours) Temp Pulse Resp BP Pulse Ox 01/21/20 11:50 98.6 F 67 16 142/69 H 94 L 01/21/20 09:50 94 L 01/21/20 09:30 98.5 F 70 16 166/79 H 96 Weight Weight 142 lb 4.8 oz I&O: 01/20/20 01/21/20 01/22/20 06:59 06:59 06:59 Intake Total 880 Output Total 2400 Balance -1520 Result Diagrams: 01/21/20 04:06 01/21/20 04:06 Additional Labs: Accuchecks 01/21/20 01/21/20 01/21/20 16:43 10:34 06:02 POC Glucose 83 182 H 106 H 01/20/20 20:44 POC Glucose 93 Labs and MAR reviewed by me EKG Reviewed by me: Yes (Normal sinus rhythm on telemetry) Hospitalist ROS - Review of Systems Cardiovascular: denies: chest pain, palpitations, orthopnea, paroxysmal noc. dyspnea, edema Gastrointestinal: denies: nausea, vomiting, abdominal pain, diarrhea, constipation, melena - Medication Medications: Active Medications Generic Name Dose Route Start Last Admin Trade Name Freq PRN Reason Stop Dose Admin Aspirin 81 mg 01/21/20 09:00 01/21/20 09:37 Aspirin 81 Mg Enteric Coated Tablet PO 81 mg DAILY ANA MARIA Administration Atorvastatin Calcium 10 mg 01/19/20 21:00 01/20/20 20:57 Atorvastatin Calcium 10 Mg Tab PO 10 mg HS ANA MARIA Administration Baclofen 60 mg 01/21/20 09:00 01/21/20 09:37 Baclofen 10 Mg Tab PO 60 mg DAILY ANA MARIA Administration Bisacodyl 10 mg 01/20/20 10:34 01/20/20 12:52 Bisacodyl 5 Mg Tab PO 10 mg DAILYPRN PRN Administration Constipation Cholecalciferol 1,000 units 01/21/20 09:00 01/21/20 09:38 Cholecalciferol 1,000 Units (25 Mcg) Tab PO 1,000 units DAILY ANA MARIA Administration Citalopram Hydrobromide 40 mg 01/20/20 21:00 01/20/20 20:57 Citalopram 20 Mg Tab PO 40 mg HS ANA MARIA Administration Cyanocobalamin 500 mcg 01/21/20 09:00 01/21/20 09:39 Cyanocobalamin (Vitamin B-12) 1,000 Mcg Tab PO 500 mcg DAILY ANA MARIA Administration Enalaprilat 1.25 mg 01/20/20 18:52 01/20/20 20:57 Enalaprilat Dihydrate 1.25 Mg/Ml Vial SLOW IVP 1.25 mg Q6H PRN Administration SBP Greater Than 170 Enoxaparin Sodium 40 mg 01/19/20 09:00 01/21/20 09:39 Enoxaparin Sodium 40 Mg/0.4 Ml Syringe SC 40 mg 0900 ANA MARIA Administration Fish Oil 1,000 mg 01/21/20 09:00 01/21/20 09:39 Fish Oil 1,000 Mg Cap PO 1,000 mg DAILY ANA MARIA Administration Gabapentin 900 mg 01/21/20 09:00 01/21/20 09:39 Gabapentin 300 Mg Cap PO 900 mg DAILY ANA MARIA Administration - Exam General Appearance: awake alert Eye: anicteric sclera ENT: moist mucosa Neck: supple Heart: RRR Respiratory: CTAB Gastrointestinal: soft, non-tender Extremities: no cyanosis Skin: no rashes Psychiatric: normal affect Hosp A/P - Plan -Assessment (1) Syncope Code(s): R55 - SYNCOPE AND COLLAPSE Status: Acute (2) HLD (hyperlipidemia) Code(s): E78.5 - HYPERLIPIDEMIA, UNSPECIFIED Status: Chronic (3) HTN (hypertension) Code(s): I10 - ESSENTIAL (PRIMARY) HYPERTENSION Status: Chronic (4) Multiple sclerosis Code(s): G35 - MULTIPLE SCLEROSIS Status: Chronic (5) acute metabolic encephalopathy Status: Resolved - Plan For cardiology service input. Neuro work-up negative so far. Continue to monitor on telemetry. Acute metabolic encephalopathy has resolved. Beta-jenni dose has been decreased. Continue statin.
[2020-01-21] MEDS: Citalopram 20 MG TAB PO SCH (20:05)
[2020-01-21] MEDS: Atorvastatin Calcium 10 MG TAB PO SCH (20:05)
[2020-01-22 04:37] LABS: #Eosinphils 0.2 thou/uL (0.0-0.7); #Lymphocytes 2.2 thou/uL (1.20-3.40); #Monocytes 0.6 thou/uL (0.11-0.59); #Neutrophils 5.2 thou/uL (1.40-6.50); %Basophils 0.6 % (0.0-1.0); %Eosinophils 2.3 % (0.0-10.0); %Lymphocytes 27.3 % (21.0-51.0); %Monocytes 6.9 % (0.0-10.0); Hemoglobin 12.3 g/dL (12.0-16.0); Mean Corpuscular HGB CONC 33.6 g/dL (32.0-36.0); Mean Corpuscular Hemoglobin 29.9 pg (27.0-31.0); Mean Corpuscular Volume 88.9 fL (78.0-98.0); Mean Platelet Volume 8.7 fL (7.4-10.4); Platelet Count 238 thou/uL (130-400); RBC Distribution Width 12.8 % (11.5-14.5); Red Blood Cell (RBC) Count 4.12 mill/uL (4.20-5.40); White Blood Cell (WBC) Count 8.2 thou/uL (4.8-10.8)
[2020-01-22 05:05] LABS: Anion Gap 13 mmol/L (10-20); BUN (Urea Nitrogen) 13 mg/dL (9.8-20.1); Calc. Creatinine Clearance 75 mL/min (70-130); Calcium 8.9 mg/dL (7.8-10.44); Carbon Dioxide 28 mmol/L (23-31); Chloride 104 mmol/L (98-107); Estimated GFR-MDRD 78; Glucose 92 mg/dL (80-115); Potassium 3.7 mmol/L (3.5-5.1); Sodium 141 mmol/L (136-145)
[2020-01-22] MEDS: Enoxaparin Sodium 40 MG/0.4 ML SYRINGE SC SCH (08:15)
[2020-01-22] MEDS: Baclofen 10 MG TAB PO SCH (08:15)
[2020-01-22] MEDS: Gabapentin 300 MG CAP PO SCH (08:17)
[2020-01-22] MEDS: Cholecalciferol 1,000 UNITS (25 MCG) TAB PO SCH (08:18)
[2020-01-22] MEDS: Aspirin 81 mg Enteric Coated Tablet PO SCH (08:19)
[2020-01-22] MEDS: Cyanocobalamin (Vitamin B-12) 1,000 MCG TAB PO SCH (08:19)
[2020-01-22] MEDS: Fish Oil 1,000 MG CAP PO SCH (08:19)
--- NOTE | 2020-01-22 11:48 | PDOC.DS.DS ---
Provider - Provider Date of Admission: 01/20/20 10:01 Date of Discharge: 01/22/20 Admitting Provider: Zac Hermosillo Consultations: Cardiology, Neurology Primary Care Physician: Zay Adams MD Course - Hospital Course Hospital Course: Discharge diagnoses: 1. Syncope 2. Syncope secondary to hypotension 3. COVID-19 test negative Hospital course: Patient is a pleasant 63-year-old lady who was admitted to the hospital on January 18, 2020 for syncope and hypotension. Neurology service was consulted. 2D echocardiogram showed left ventricle ejection fraction of 55 to 60%. EEG was normal. She was also seen by cardiology service. It was felt that her presentation was secondary to hypotensive episode. Amlodipine was discontinued and metoprolol dose was decreased to 50 mg daily. She has been cleared for discharge. Many thanks for allowing me to participate in your patient's care. Please feel free to contact me with any questions or concerns. Discharge destination: Home Total amount of time spent coordinating this discharge: 32 minutes Resuscitation Status: 01/19/20 00:01 Resuscitation Status Routine Resuscitation Status: FULL: Full Resuscitation - Labs Lab Results: 01/22/20 04:11 01/22/20 04:11 Abnormal Lab Results - Last 48 hrs 01/21/20 04:06: BUN 9 L 01/21/20 04:06: Neutrophils # 7.2 H, Monocytes # 0.6 H 01/22/20 04:11: RBC 4.12 L, Monocytes # 0.6 H Microbiology - Entire Visit 01/18/20 20:15 Urine Straight Catheter Urine Culture - Final NO GROWTH AT 36 HOURS 01/18/20 19:22 Venous blood - Left Hand Blood Culture - Preliminary NO GROWTH AT 48 HOURS 01/18/20 19:22 Venous blood - Left Arm Blood Culture - Preliminary NO GROWTH AT 48 HOURS - Physical Exam Vitals: Vital Signs (12 hours) Temp Pulse Resp BP Pulse Ox 01/22/20 07:26 98.2 F 65 16 112/62 95 01/22/20 03:22 98.3 F 65 12 121/58 L 95 01/22/20 03:19 98.4 F 64 12 95 01/22/20 00:00 67 18 Weight Weight 141 lb 12.8 oz Physical Exam: The patient was seen and examined on the day of discharge. Patient denies chest pain or shortness of breath. Vital signs are stable. S1 and S2 are heard. Lungs are clear to auscultation bilaterally. Plan - Discharge Medications Prescriptions: Metoprolol Succinate [Toprol XL] 50 mg PO QAM #30 tab Home Medications: Medication Instructions Recorded Confirmed Type Cholecalciferol (Vitamin D3) 1,000 unit PO DAILY 06/05/13 01/19/20 History [Vitamin D3] Aspirin [Aspirin EC] 1 tab PO DAILY 08/25/17 01/19/20 History Baclofen 60 mg PO DAILY 08/25/17 01/19/20 History Gabapentin 900 mg PO DAILY 08/25/17 01/19/20 History Simvastatin 1 tab PO HS 08/25/17 01/19/20 History Citalopram [CeleXA] 40 mg PO HS 01/19/20 01/19/20 History Cyanocobalamin (Vitamin B-12) 500 mcg PO DAILY 01/19/20 01/19/20 History [Vitamin B-12] Fish Oil/DHA/EPA [Fish Oil 1,200 1 cap PO DAILY 01/19/20 01/19/20 History mg Fish Oil] [place]-3 Fatty Acids/Fish Oil 1 cap PO DAILY 01/19/20 01/19/20 History [[place] 3 Fish Oil Softgel] Metoprolol Succinate [Toprol XL] 50 mg PO QAM #30 tab 01/22/20 Rx Allergies: No Known Allergies Allergy (Verified 01/19/20 03:04) - Discharge Instructions Discharge Instructions:: STOP AMLODIPINE AND HYDROCHLOROTHIAZIDE. DECREASE METOPROLOL TO 50 MG DAILY. OTHERWISE, NO CHANGE TO HOME MEDICATIONS. Activity:: Activity as Tolerated Nourishment:: Diabetic Diet, Heart Healthy Diet - Follow up Plan Referrals: Zay Adams MD [Primary Care Provider] - 3 Days Disposition: HOME
[2020-01-22 12:19] VITALS: BP 118/58; TEMP 97.9
--- NOTE | 2020-01-24 04:41 | PQF ---
CLINICAL DOCUMENTATION CLARIFICATION FORM: Dear : Ottoniel Han Date / Time: 01/24/20 0440 Please exercise your independent, professional judgment in responding to the clarification form. Clinical indicators are provided on the bottom of this form for your review In your clinical opinion based on clinical findings below, can you please specify hypotension if: Please check appropriate box(es): [ ] Orthostatic Hypotension [ ] Hypotension due to Over-medication of Anxiety medication [ x ] Other diagnosis ____hypotension due to antihypertensive use [ ] Unable to determine Physician Signature: Date/Time: For continuity of documentation, please document condition throughout progress notes and discharge summary. Thank You. To be completed by CDI/Coding staff for physician review: Present Clinical Indicators - Signs / Symptoms / Labs Results and Location in Medical Record [X] Pulse 79, Resp 18, Temp 98.5 Vital signs 01/18 [X] BP 100/55; 101/53 Vital signs 01/18 [X] Presented due to Syncope. Had episode of altered mental status H&P p1 01/17 Dr Hermosillo [X] Ddx incldes hypotension secondary to overmedication of anxiety medication H&P p4 01/17 Dr Hermosillo [X] Episode of unresponsiveness and syncope, probably orthostatic hypotension Consult Dr Grimaldo 01/20 [X] Syncope due to hypotension DS p1 01/21 Dr Han Present Risk Factors Results and Location in Medical Record [X] 69 year-old Female H&P p1 01/17 Dr Hermosillo [X] MS H&P p1 01/17 Dr Hermosillo [X] HTN H&P p1 01/17 Dr Hermoslilo Present Treatments Results and Location in Medical Record [X] IVF NS 1L MAY 28 [X] IV Vasotec 1.25 mg MAY 29 [X] Cardiology Consult Consult Dr Grimaldo 01/20 CDS/Change Attendant Signature: Nelly Porras Phone #: [phone] Date/Time: 01/24/2020 0440 This is a permanent part of the Medical Record [facility]
--- NOTE | 2020-01-26 15:07 | EKG ---
Test Reason : Blood Pressure : / mmHG Vent. Rate : 068 BPM Atrial Rate : 068 BPM P-R Int : 104 ms QRS Dur : 072 ms QT Int : 448 ms P-R-T Axes : 062 026 044 degrees QTc Int : 476 ms Sinus rhythm with short AK Cannot rule out Anterior infarct , age undetermined Abnormal ECG Confirmed by ERIBERTO KAUR ([id number]), editor managing newspaper [employer]YNN ([id number]) on 01/26/2020 3:07:19 PM Referred By: Confirmed By:ERIBERTO KAUR
== END 2020-01-22 14:30 | disposition home or self-care (01) | DRG 312 ==
LOC: ERS 18:33 → 2NO 21:36 → OBSVTOIN 01-20 10:01
PROVIDERS: ADMIT Internal Medicine; ATTEND Internal Medicine
DX: I95.2 Hypotension due to drugs (principal); G93.41 Metabolic encephalopathy; Z20.828 Contact with and (suspected) exposure to other viral communicable diseases; G35 Multiple sclerosis; E78.5 Hyperlipidemia, unspecified; I10 Essential (primary) hypertension; T46.1X5A Adverse effect of calcium-channel blockers, initial encounter; T44.7X5A Adverse effect of beta-adrenoreceptor antagonists, initial encounter; Z28.21 Immunization not carried out because of patient refusal; Z90.49 Acquired absence of other specified parts of digestive tract; Z90.710 Acquired absence of both cervix and uterus
CPT/HCPCS: 36415; 36416; 51701; 70450; 70553; 71045; 71275; 74177; 80048; 80053; 80061; 81003; 82140; 83036; 83605; 83690; 83735; 83880; 84146; 84443; 84484; 85007; 85025; 85027; 85379; 85610; 85730; 87040; 87086; 87635; 93005; 93306; 95712; 95816; 95819; 95957; 96365; 96372; A9579; G0378; J1650; J2543; Q9967; U0003

== ENCOUNTER 2020-03-17 15:40 | Outpatient (CLI) | payer MEDICARE, OTHER ==
--- NOTE | 2020-03-17 16:13 | ULT ---
Thyroid ultrasound: 03/17/2020 COMPARISON: None available HISTORY: Thyroid nodule TECHNIQUE: Multiplanar grayscale sonographic imaging of the thyroid gland obtained. FINDINGS: Thyroid isthmus measures 2 mm in AP dimension. The right lobe measures 1.7 x 4.1 x 1.5 cm. A small heterogeneously hypoechoic probably solid nodule is noted in the superior aspect of the right lobe measuring 7 x 4 x 8 mm. A mildly complex cyst is noted in the superior aspect of the right lobe measuring 5 x 3 x 4 mm. The left lobe measures 3.2 x 1.2 x 1.2 cm. There is a hypoechoic nodule in the midportion of the left lobe measuring 3 x 3 x 3 mm. No dominant s olid nodule is noted on either side. IMPRESSION:TI-RADS 4-moderately suspicious. Given size of thyroid nodules measuring less than a centi meter in size, no further follow-up is recommended.
== END 2020-03-17 15:41 | disposition home or self-care (01) ==
LOC: BICULT 15:40
PROVIDERS: ATTEND Internal Medicine Cardiovascular Disease
DX: E04.2 Nontoxic multinodular goiter (principal)
CPT/HCPCS: 76536

== ENCOUNTER 2021-08-21 21:42 | Emergency (ER) | payer MEDICARE, OTHER ==
[2021-08-21 22:06] LABS: #Basophils 0.1 thou/uL (0.0-0.2); #Eosinphils 0.1 thou/uL (0.0-0.7); #Lymphocytes 2.7 thou/uL (1.20-3.40); #Monocytes 0.5 thou/uL (0.11-0.59); #Neutrophils 5.4 thou/uL (1.40-6.50); %Basophils 1.2 % (0.0-1.0); %Lymphocytes 30.6 % (21.0-51.0); %Monocytes 5.8 % (0.0-10.0); %Neutrophils 61.4 % (42.0-75.0); Mean Corpuscular HGB CONC 32.6 g/dL (32.0-36.0); Mean Corpuscular Hemoglobin 30.1 pg (27.0-31.0); Mean Corpuscular Volume 92.3 fL (78.0-98.0); Mean Platelet Volume 8.2 fL (7.4-10.4); Platelet Count 291 thou/uL (130-400); Red Blood Cell (RBC) Count 5.32 mill/uL (4.20-5.40); White Blood Cell (WBC) Count 8.8 thou/uL (4.8-10.8)
[2021-08-21 22:22] LABS: Alcohol Less than 10 mg/dL (Less than 10); Anion Gap 15 mmol/L (10-20); BUN (Urea Nitrogen) 16 mg/dL (9.8-20.1); Calc. Creatinine Clearance 0 mL/min (70-130); Calcium 9.6 mg/dL (7.8-10.44); Carbon Dioxide 27 mmol/L (23-31); Chloride 100 mmol/L (98-107); Glucose 97 mg/dL (80-115); Potassium 3.8 mmol/L (3.5-5.1); Sodium 138 mmol/L (136-145)
[2021-08-21 22:24] LABS: Acetaminophen Less than 10.0 mcg/mL (10.0-30.0); Alcohol Less than 10 mg/dL (Less than 10); Salicylate Less than 8.0 mg/dL (15.0-30.0)
[2021-08-22 03:13] LABS: Bacteria/HPF 4+ HPF (None Seen); Bilirubin Negative (Negative); Blood, Urine 3+ (Negative); Clarity Turbid (Clear); Glucose, Urine (Dipstick) Normal (Negative); Ketone, Urine 20 mg/dL (Negative); Leukocyte 250 Leu/uL (Negative); Nitrite 2+ (Negative); Protein, Urine (Dipstick) 30 mg/dL (Neg-Trace); RBC/HPF 21-50 HPF (0-3); Specific Gravity, Urine 1.026 (1.002-1.036); Urobilinogen Normal mg/dL (Less than 2); WBC/HPF 21-50 HPF (0-3)
[2021-08-22 03:19] LABS: Amphetamine Not Detected (NotDetected); Barbiturates Screen Not Detected (NotDetected); Benzodiazepine Screen Not Detected (NotDetected); Cocaine Metabolite Screen Not Detected (NotDetected); Methadone Not Detected (NotDetected); Methamphetamine Not Detected (NotDetected); Opiate Screen Not Detected (NotDetected); Oxycodone Screen Not Detected (NotDetected); Phencyclidine (PCP) Not Detected (NotDetected); THC/Cannabinoid Screen Not Detected (NotDetected); Tricyclic Screen Not Detected (NotDetected)
[2021-08-22] MEDS ORDERED: Cefdinir 300 MG CAP PO SCH (03:45)
[2021-08-22 10:54] LABS: SARS-CoV-2 NAA Rapid Test Not Detected (NotDetected)
== END 2021-08-22 19:00 ==
LOC: ERS 21:42
DX: R45.851 Suicidal ideations (principal); N39.0 Urinary tract infection, site not specified; R00.0 Tachycardia, unspecified; I10 Essential (primary) hypertension; E11.9 Type 2 diabetes mellitus without complications; E78.5 Hyperlipidemia, unspecified; G35 Multiple sclerosis; Z20.822 Contact with and (suspected) exposure to COVID-19; Z79.82 Long term (current) use of aspirin; Z79.899 Other long term (current) drug therapy
CPT/HCPCS: 80048; 80306; 80307 ×2; 84443; 85025; 87077; 87086; 93005; U0002; 36415; 51701; 81003; 81015; 87186

== ENCOUNTER 2024-04-20 13:27 | Outpatient (CLI) | payer MEDICARE, OTHER ==
[~2024-04-20 13:27] MED LIST changes: -Iopamidol 370 76% 100 ML VIAL ONE; +Magnevist 469MG/ML 20 ML VIAL ONE
== END 2024-04-20 13:28 | disposition home or self-care (01) ==
LOC: MRI 13:27
PROVIDERS: ATTEND Psychiatry & Neurology Neurology
DX: G35 Multiple sclerosis (principal); R90.82 White matter disease, unspecified; J34.89 Other specified disorders of nose and nasal sinuses
CPT/HCPCS: 70553; 76376